=== PATIENT | male | born 1970 | race Caucasian/White ===

== ENCOUNTER 2017-03-08 11:05 | Day surgery (SDC) | payer OTHER ==
[~2017-03-08] VITALS: Ht 182.9 cm; Wt 78.3 kg
[2017-03-08] VITALS (16 sets, daily range): BP systolic 117–135; BP diastolic 74–89; PULSE 64–76; RESP 15–28; Ht 182.9 cm; Wt 78.3 kg
[~2017-03-08 11:05] MED LIST: CEFAZOLIN 1 GM/50 ML (PMX) 50 ML IVPB ONE
[2017-03-08] MEDS ORDERED: BUPIVACAINE 0.25%/EPI (SDV) 30 ML INJ ONE (12:54)
--- NOTE | 2017-03-08 13:10 | HPN ---
Date/Time of Note Date/Time of Note DATE: 03/08/17 TIME: 13:09 Interval H&P Admission Note Pt. seen H&P reviewed: No system changes JEANNIE VALADEZ MD Mar 08, 2017 13:10
--- NOTE | 2017-03-08 13:11 | HPN ---
Date/Time of Note Date/Time of Note DATE: 03/08/17 TIME: 13:11 Interval H&P Admission Note Pt. seen H&P reviewed: No system changes JEANNIE VALADEZ MD Mar 08, 2017 13:11
[2017-03-08] MEDS ORDERED: PROPOFOL 20 ML ONE (13:15)
[2017-03-08] MEDS ORDERED: LIDOCAINE 2% (SDV) 5 ML INJ ONE (13:15)
[2017-03-08] MEDS ORDERED: ROCURONIUM 50 MG INJ ONE (13:15)
[2017-03-08] MEDS ORDERED: MIDAZOLAM 1 MG/ML 2 ML INJ ONE (13:16)
[2017-03-08] MEDS ORDERED: ROPIVACAINE 0.5 % 30 ML VIAL ONE (13:18)
[2017-03-08] MEDS ORDERED: DEXAMETHASONE 4 MG/ML 1 ML INJ ONE (13:19)
[2017-03-08] MEDS ORDERED: METHYLPREDNISOLONE ACET 80 MG/ML 1 ML ONE (14:18)
[2017-03-08] MEDS ORDERED: SUGAMMADEX SODIUM 200 MG/2 ML VIAL IV ONE (14:26)
--- NOTE | 2017-03-08 14:33 | OPR ---
Date/Time of Note Date/Time of Note DATE: 03/08/17 TIME: 14:30 Operative Report Preoperative Diagnosis right shoulder tendonitits bursitis, impingement syndrome Postoperative Diagnosis same Operation/Procedure Performed right shoulder decompression, acromioplasty Surgeon see signature line [employer] Physician none Anesthesia Type: general Estimated Blood Loss: 50 - 100 ml's Transfusion none Specimen none Grafts/Implants none Tubes/Drains nopne Complications none Pt Condition Post Procedure: stable Procedure Description impingement syndrome JEANNIE VALADEZ MD Mar 08, 2017 14:33
[2017-03-08] MEDS ORDERED: LIDOCAINE 1% (MDV) 20 ML INJ ONE (14:38)
[2017-03-08] MEDS ORDERED: HYDROmorphONE (0.2 MG/ML) 10ML SYG IV PRN ×2 (15:00)
[2017-03-08] MEDS ORDERED: METOCLOPRAMIDE 10 MG INJ IV PRN (15:00)
[2017-03-08] MEDS ORDERED: ONDANSETRON 4 MG INJ IV PRN (15:00)
--- NOTE | 2017-03-09 13:50 | OPR ---
DATE OF OPERATION: 03/08/2017 SURGEON: Cristal Arriaga MD. ANESTHESIA: General. PREOPERATIVE DIAGNOSIS: Right shoulder bursitis tendinitis and impingement syndrome. POSTOPERATIVE DIAGNOSIS: Right shoulder bursitis tendinitis and impingement syndrome. OPERATION PERFORMED: 1. Right shoulder decompression acromioplasty proximal ____ procedure. 2. Debridement of degenerated labrum. ESTIMATED BLOOD LOSS: 100 mL. COMPLICATIONS: None. DESCRIPTION OF PROCEDURE: Patient taken to the operating room and general anesthetic given with int ubation. Two grams of Kefzol given for prophylaxis. The patient placed in the beach chair position with padding of all extremities. Right arm prepped and draped in the usual sterile manner. Finisher Machine ior portal was utilized in the subacromial space ____ with persisting complains of pain in the right shoulder. Pain persisted despite therapy, medications and injections with steroids. The shoulder joint was visualized arthroscopically. Fibular tears noted in the labrum which was debrided with th e shaver. The rotator cuff tendon was intact. The biceps tendon was intact. Minimal chondroplasty noted. The subacromial space was entered. Acromioplasty was performed with the bur shaving the ac romion and distal clavicle making adequate space the subacromial space. Hemostasis ascertained usin g cautery. Full range of motion of the shoulder was achieved with no impingement. Portals closed w ith 2-0 nylon suture. Compression bandage applied. Anesthetic reversed. Patient taken to recovery in stable condition. Dictated By: CRISTAL AGUIRRE/MICHAEL Conf#: [id number] DID#: [id number]
== END 2017-03-08 17:00 | disposition home or self-care (01) ==
LOC: SDS 11:05
PROVIDERS: ATTEND Specialist
DX: M75.41 Impingement syndrome of right shoulder (principal); M75.01 Adhesive capsulitis of right shoulder
CPT/HCPCS: 29823; J1040; J1170; J2250; Z7512; Z7610; J1100; J2795